=== PATIENT | male | born 1990 | race Two or more races ===

== ENCOUNTER 2017-12-01 09:24 | Emergency (ER) | payer OTHER ==
[2017-12-01] MEDS ORDERED: LIDOCAINE HCL 1% 20 ML VIAL ONE (09:48)
== END 2017-12-01 10:19 | disposition home or self-care (01) ==
LOC: EDH 09:24
DX: S51.811A Laceration without foreign body of right forearm, initial encounter (principal); X58.XXXA Exposure to other specified factors, initial encounter; Y93.89 Activity, other specified; Y92.89 Other specified places as the place of occurrence of the external cause; Y99.8 Other external cause status
CPT/HCPCS: 12002